=== PATIENT | female | born 1995 | race Caucasian/White ===

== ENCOUNTER 2017-01-26 19:56 | Emergency (ER) | payer BC ==
[~2017-01-26] VITALS: Ht 162.6 cm; Wt 75.5 kg
[~2017-01-26 19:56] MED LIST: AUG875 PO; FLUT9.9S NASAL; IBUP-1542 PO; LORA0.5T PO; PSEU30TA38 PO
[2017-01-26 20:16] VITALS: Ht 162.6 cm; Wt 75.5 kg
[2017-01-26] MEDS ORDERED: CIPROFLOXACIN 500 MG TAB PO ONE (23:00)
[2017-01-26] MEDS ORDERED: HYDROCODONE/APAP (5/325) TAB PO ONE (23:00)
--- NOTE | 2017-01-26 23:34 | RADRPT ---
PROCEDURE: XR left ankle. CLINICAL INDICATION: Status post fall with medial left ankle pain ankle pain TECHNIQUE: AP , oblique and lateral views of theleft ankle were performed. COMPARISON: None. FINDINGS: There is normal mineralization and alignment. No fracture or osseous lesion is identified. The ankle mortis and talar dome are intact. Soft tissue swelling is present predominate over the lateral mall eolus. There is no evidence for a radiopaque foreign body. RPTAT:HJJR IMPRESSION: Soft tissue swelling particularly over the lateral malleolus without acute osseous abnormality of th e left ankle. Physician Justice Date Time Electronically viewed and signed by Physician Justice on 01/26/2017 23:33 JR/
[2017-01-27] MEDS ORDERED: IBUP800T25 PO (00:11)
--- NOTE | 2017-01-27 00:13 | ERD ---
ER Documentation Chief Complaint Date/Time DATE: 01/27/17 TIME: 00:12 Chief Complaint exposed to bacterial meningitis 1 wk ago, left ankle pain/swelling HPI Last week. She was told by the CDC to come get post exposure prophylaxis with ciprofloxacin. Patient denies any headache. Denies any neck stiffness. Denies any fevers or chills. Denies any meningismus. Patient also has a separate complaint of ankle pain. She rolled her ankle yesterday. She has mild left ankle swelling. No fevers no chills. No nausea no vomiting. No other current complaints. ROS All systems reviewed and are negative except as per history of present illness. Medications Home Meds Active Scripts Ibuprofen* (Motrin*) 800 Mg Tab, 800 MG PO Q6, #30 TAB Prov:TYSON KELLER 01/27/17 Lorazepam* (Lorazepam*) 0.5 Mg Tablet, 0.5 MG PO HS Y for ANXIETY for 10 Days, TAB Prov:MAHENDRA CROOKS 01/30/16 Ibuprofen* (Motrin*) 600 Mg Tab, 600 MG PO Q6H Y for PAIN AND OR ELEVATED TEMP, #30 TAB Prov:LISETH CALZADA PA-C 11/24/15 Fluticasone Propionate (Flonase Allergy Relief) 9.9 [place].susp, 2 SPRAY NASAL DAILY, #1 BOTTLE TO EACH NOSTRIL Prov:SHABNAM GOODE PA-C 10/30/15 Pseudoephedrine Hcl* (Pseudoephedrine Hcl*) 30 Mg Tablet, 30 MG PO Q6 Y for CONGESTION, #30 TAB Prov:SHABNAM GOODE PA-C 10/30/15 Amoxicillin-Clavulanate K* (Augmentin*) 875 Mg Tab, 875 MG PO BID for 7 Days, TAB Prov:SHABNAM GOODE PA-C 10/30/15 Allergies Allergies: Coded Allergies: No Known Allergy (Unverified , 10/30/15) PMhx/Soc Medical and Surgical Hx: pt denies Medical Hx, pt denies Surgical Hx History of Surgery: No Anesthesia Reaction: No Hx Neurological Disorder: No Hx Respiratory Disorders: No Hx Cardiac Disorders: No Hx Psychiatric Problems: No Hx Miscellaneous Medical Probl: No Hx Alcohol Use: No Hx Substance Use: No Hx Tobacco Use: No Smoking Status: Never smoker Physical Exam Vitals Vital Signs Date Time Temp Pulse Resp B/P Pulse Ox O2 Delivery O2 Flow Rate FiO2 01/26/17 20:16 98.3 75 20 156/73 99 Physical Exam Const: [] Head: Atraumatic Eyes: Normal Conjunctiva ENT: Normal External Ears, Nose and Mouth. Neck: Full range of motion..~ No meningismus. Resp: Clear to auscultation bilaterally Cardio: Regular rate and rhythm, no murmurs Abd: Soft, non tender, non distended. Normal bowel sounds Skin: No petechiae or rashes Back: No midline or flank tenderness Ext: Left ankle with mild swelling at lateral malleolus. Neurovascularly intact Neur: Awake and alert Psych: Normal Mood and Affect Results 24 hrs Current Medications Medications (Trade) Dose Ordered Sig/Migdalia Route PRN Reason Start Time Stop Time Status Last Admin Dose Admin Acetaminophen/ Hydrocodone Bitart ([place] (5/325)) 1 tab ONCE ONCE PO 01/26/17 23:00 01/26/17 23:01 DC 01/26/17 23:05 Ciprofloxacin (Cipro) 500 mg ONCE ONCE PO 01/26/17 23:00 01/26/17 23:01 DC 01/26/17 23:05 Procedures/MDM X-ray Ankle 3V Interpreted by me: Bones: [No fracture] Joints: No dislocation Medical decision-making: Patient comes in with expressive ankle sprain. She is placed in a posterior splint with crutches. Neurovascularly intact after splint application. Given crutches. Patient was given a dose of Cipro here in the ER. Also placed on Cipro for prophylaxis. Departure Diagnosis: Primary Impression: Ankle injury Encounter type: initial encounter Laterality: left Qualified Code: S99.912A - Ankle injury, left, initial encounter Condition: Stable Patient Instructions: Treating Ankle Sprains TYSON KELLER Jan 27, 2017 00:13
[2017-01-27] MEDS ORDERED: CIPR500T4 PO (00:15)
== END 2017-01-27 00:56 | disposition home or self-care (01) ==
LOC: E/R 19:56
DX: S99.912A Unspecified injury of left ankle, initial encounter (principal); R40.2252 Coma scale, best verbal response, oriented, at arrival to emergency department; R40.2142 Coma scale, eyes open, spontaneous, at arrival to emergency department; R40.2362 Coma scale, best motor response, obeys commands, at arrival to emergency department; X50.9XXA Other and unspecified overexertion or strenuous movements or postures, initial encounter; Y92.9 Unspecified place or not applicable
CPT/HCPCS: 29515; 73610; Z7502; Z7610

== ENCOUNTER 2017-10-22 19:41 | Emergency (ER) | END 2017-10-22 22:23 | disposition home or self-care (01) ==